=== PATIENT | male | born 1980 | race Caucasian/White ===

== ENCOUNTER → 2019-02-22 | Outpatient (CLI) | payer MEDICARE, BC, MEDICAID | LOC: FB.MH 08:00 | PROVIDERS: ATTEND Psychiatry & Neurology Psychiatry | DX: F34.0 Cyclothymic disorder (principal); F41.1 Generalized anxiety disorder; F71 Moderate intellectual disabilities | CPT/HCPCS: 99213 ==

== ENCOUNTER 2020-06-02 10:56 | Emergency (ER) | payer MEDICARE, BC, MEDICAID ==
[2020-06-02] MEDS ORDERED: Sodium Chloride 0.9% 10 ML Syringe FLUSH PRN (11:15)
[2020-06-02] MEDS ORDERED: Sodium Chloride 0.9% 500 ML IV ONE (11:15)
--- NOTE | 2020-06-02 11:15 | EDM.PDOC ---
ED HPI GENERAL MEDICAL PROBLEM - General Chief Complaint: Neuro Symptoms/Deficits Stated Complaint: CARDIAC Time Seen by Provider: 06/02/20 11:10 Source of Information: Reports: Patient, EMS, Other (caregiver) - History of Present Illness INITIAL COMMENTS - FREE TEXT/NARRATIVE: Patient was standing in faith, stated to his caregiver that he had a headache, then sat down, became unresponsive, displayed jerking movements, and agonal breathing. There was no injury. Episode lasted 30 sec. He has had three similar episodes in the last ninety days and is currently wearing a cardiac event monitor because of this. He resides at a snf. No formal diagnosis of seizure disorder. Patient complains of headache, dizziness, and cough. Duration: Hour(s): (1) - Related Data Allergies Allergy/AdvReac Type Severity Reaction Status Date / Time No Known Allergies Allergy Verified 06/02/20 11:02 Home Meds: Home Meds Acetaminophen 325 mg PO BEDTIME 07/07/15 [History] Albuterol Sulfate [Proair Hfa] 2 inh INH Q4HR PRN 07/07/15 [History] Azithromycin [Z-Janak] 250 mg PO ASDIRECTED #1 dosepk 07/07/15 [Rx] Benztropine [Cogentin] 0.5 mg PO DAILY 07/07/15 [History] Cellulose [Unifiber] 1 tbsp PO BEDTIME 07/07/15 [History] Fluoride (Sodium) [Clinpro 5000] 1 applic DENT DAILY 07/07/15 [History] Fluticasone Propionate [Flonase] 1 inh INH BID 07/07/15 [History] Fluticasone/Salmeterol [Advair Diskus 100-50] 1 inh PO BID 07/07/15 [History] Ibuprofen 600 mg PO Q6HR 07/07/15 [History] Loratadine [Claritin] 10 mg PO DAILY 07/07/15 [History] Mv,Sundeep,Min/Iron/Folic Acid/Lut [Complete Multi] 1 tab PO DAILY 07/07/15 [History] OXcarbazepine [Trileptal] 600 mg PO BID 07/07/15 [History] QUEtiapine Fumarate [Seroquel Xr] 200 mg PO BEDTIME 07/07/15 [History] QUEtiapine [SEROquel XR] 150 mg PO DAILY 07/07/15 [History] QUEtiapine [SEROquel] 50 mg PO BID PRN 07/07/15 [History] QUEtiapine [SEROquel] 100 mg PO BEDTIME 07/07/15 [History] diphenhydrAMINE [Benadryl] 25 mg PO Q6HR PRN 07/07/15 [History] Past Medical History Respiratory History: Reports: Asthma Psychiatric History: Reports: Anxiety, Bipolar, Mood Swings, Other (See Below) Other Psychiatric History: MENTALLY HANDICAPPED ED ROS GENERAL - Review of Systems Review Of Systems: Unable To Obtain Reason Not Obtained: Intellectual disability - Physical Exam Exam: See Below Exam Limited By: No Limitations General Appearance: Alert, WD/WN, No Apparent Distress Eye Exam: Bilateral Eye: EOMI, PERRL Throat/Mouth: No Airway Compromise Head Exam: Atraumatic, Normocephalic Respiratory/Chest: Lungs Clear, Normal Breath Sounds Cardiovascular: Regular Rate, Rhythm, No Gallop, No Murmur GI/Abdominal: Soft, Non-Tender, No Distention Neuro Exam (Abbreviated): Alert, Other (non-focal) Extremities: Normal Range of Motion Skin Exam: Warm, Dry, Intact #1 Interpretation EKG Date: 06/02/20 Time: 10:58 Rhythm: NSR Rate (Beats/Min): 76 [place]: Normal P-Wave: Present QRS: Other (nonspecific intraventricular conduction delay) ST-T: Normal QT: Normal Comparison: No Change (07/07/15) Course - Vital Signs Last Recorded V/S: Last Vital Signs Temp 36.8 C 06/02/20 11:00 Pulse 84 06/02/20 11:00 Resp 16 06/02/20 11:00 BP 125/81 06/02/20 11:00 Pulse Ox 98 06/02/20 11:00 - Orders/Labs/Meds Orders: Active Orders 24 hr Category Date Time Status EKG Documentation Completion [RC] ASDIRECTED Care 06/02/20 11:00 Active CXR [Chest 1V Frontal] [CR] Stat Exams 06/02/20 11:07 Taken Head wo Cont [CT] Stat Exams 06/02/20 11:05 Stop Req Head wo Cont [CT] Stat Exams 06/02/20 11:05 Taken Sodium Chloride 0.9% [Saline Flush] Med 06/02/20 11:15 Active 10 ml FLUSH ASDIRECTED PRN Saline Lock Insert [OM.PC] Routine Oth 06/02/20 11:15 Ordered EKG 12 Lead [EK] Stat Ther 06/02/20 11:00 Ordered Medication Orders Sodium Chloride (Saline Flush) 10 ml FLUSH ASDIRECTED PRN PRN Reason: Keep Vein Open Labs: Laboratory Tests 06/02/20 06/02/20 Range/Units 11:35 11:35 WBC 4.8 (3.2-10.1) x10-3/uL RBC 4.67 (3.90-5.90) x10(6)uL Hgb 14.5 (12.9-17.7) g/dL Hct 41.9 (38.3-50.1) % MCV 89.6 (80.8-98.7) fL MCH 31.0 (27.0-33.3) pg MCHC 34.6 (28.7-35.3) g/dL RDW 13.9 (12.4-15.0) % Plt Count 147 (117-477) x10(3)uL MPV 6.8 (6.7-11.0) fL Neut % (Auto) 86.3 H (40.3-71.8) % Lymph % (Auto) 6.0 L (15.8-45.3) % [place] % (Auto) 5.5 (5.5-15.2) % Eos % (Auto) 1.0 (0.1-6.8) % Baso % (Auto) 1.2 (0.3-3.8) % Neut # (Auto) 4.2 (1.7-6.9) x10-3/uL Lymph # (Auto) 0.3 L (0.5-4.5) x10-3/uL [place] # (Auto) 0.3 (0.0-1.2) x10-3/uL Eos # (Auto) 0.0 (0.0-0.6) x10-3/uL Baso # (Auto) 0.1 (0.0-0.3) x10-3/uL Sodium 134 L (135-145) mmol/L Potassium 4.4 (3.5-5.3) mmol/L Chloride 99 L (100-110) mmol/L Carbon Dioxide 29 (21-32) mmol/L BUN 15 (7-18) mg/dL Creatinine 0.8 (0.70-1.30) mg/dL Est Cr Clr Drug Dosing TNP Estimated GFR (MDRD) > 60 (>60) BUN/Creatinine Ratio 18.8 (9-20) Glucose 127 H (80-116) mg/dL Calcium 8.3 L (8.6-10.2) mg/dL Total Bilirubin 0.3 (0.1-1.3) mg/dL AST 22 (5-25) IU/L ALT 38 H (12-36) U/L Alkaline Phosphatase 92 (56-112) IU/L Total Protein 6.8 (6.0-8.0) g/dL Albumin 3.9 (3.5-5.2) g/dL Globulin 2.9 g/dL Albumin/Globulin Ratio 1.3 Meds: Medications Generic Name Dose Route Start Last Admin Trade Name Freq PRN Reason Stop Dose Admin Sodium Chloride 10 ml 06/02/20 11:15 Saline Flush FLUSH ASDIRECTED PRN Keep Vein Open Discontinued Medications Generic Name Dose Route Start Last Admin Trade Name Freq PRN Reason Stop Dose Admin Sodium Chloride 500 mls @ 500 mls/hr 06/02/20 11:15 06/02/20 11:17 Normal Saline IV 06/02/20 12:14 500 mls/hr .BOLUS ONE Administration - Radiology Interpretation Free Text/Narrative:: CXR: No acute process. (ED provider interpretation) CT Head s/ contrast: Impression: 1. No evidence of acute intracranial abnormality. 2. Stable regions of nonspecific hypoattenuation in the bilateral frontal and parietal lobe subcortical white matter are nonspecific but could represent chronic microangiopathic white matter changes. 3. Resolution of right maxillary sinus disease. Dictated by Oscar Alfaro MD @ Jun 02 2020 12:10PM - Re-Assessments/Exams Free Text/Narrative Re-Assessment/Exam: 06/02/20 12:24 NSR s/ ectopy and no seizure like activity during ED stay. Departure - Departure Time of Disposition: 12:25 Disposition: Home, Self-Care 01 Condition: Good Clinical Impression: Seizure-like activity Syncope Qualifiers: Syncope type: unspecified Qualified Code(s): R55 - Syncope and collapse - Discharge Information *PRESCRIPTION DRUG MONITORING PROGRAM REVIEWED*: No *COPY OF PRESCRIPTION DRUG MONITORING REPORT IN PATIENT BOYD: Not Applicable Instructions: Syncope, [id number] Referrals: George Solorio MD [Primary Care Provider] - 2 Days Forms: ED Department Discharge Additional Instructions: Follow up with your primary physician in 2-3 days. Return to the ER with any con cerns. Sepsis Event Note (ED) - Evaluation Sepsis Screening Result: No Definite Risk - Focused Exam Vital Signs: Vital Signs Temp Pulse Resp BP Pulse Ox 06/02/20 11:00 36.8 C 84 16 125/81 98 - My Orders Last 24 Hours: My Active Orders 06/02/20 11:00 EKG Documentation Completion [RC] ASDIRECTED EKG 12 Lead [EK] Stat 06/02/20 11:05 Head wo Cont [CT] Stat Head wo Cont [CT] Stat 06/02/20 11:07 CXR [Chest 1V Frontal] [CR] Stat 06/02/20 11:15 Sodium Chloride 0.9% [Saline Flush] 10 ml FLUSH ASDIRECTED PRN Saline Lock Insert [OM.PC] Routine - Assessment/Plan Last 24 Hours: My Active Orders 06/02/20 11:00 EKG Documentation Completion [RC] ASDIRECTED EKG 12 Lead [EK] Stat 06/02/20 11:05 Head wo Cont [CT] Stat Head wo Cont [CT] Stat 06/02/20 11:07 CXR [Chest 1V Frontal] [CR] Stat 06/02/20 11:15 Sodium Chloride 0.9% [Saline Flush] 10 ml FLUSH ASDIRECTED PRN Saline Lock Insert [OM.PC] Routine
[2020-06-02 11:31] VITALS: BP 125/81; PULSE 84
--- NOTE | 2020-06-03 11:04 | CR ---
INDICATION: Cough. CHEST ONE VIEW: An AP upright portable view of the chest was obtained 06/02/20 and compared with 02/01/13. What appears to be a relatively poor inspiration is noted. Electronic device is noted overlying the left upper chest. Overlying EKG leads are noted. Heart did not appear grossly enlarged. Heavy markings are noted at the lung bases, not dissimilar from the previous study, but making it difficult to exclude areas of patchy bronchopneumonia. It may simply be on the basis of fibrosis, however, and should be correlated clinically. No gross consolidating pneumonia or effusion was seen. When clinically possibly, full inspiration PA and lateral views of the chest may be helpful for further evaluation. MTDD
== END 2020-06-02 13:15 | disposition home or self-care (01) ==
LOC: FB.ED 10:56
DX: R55 Syncope and collapse (principal); R25.9 Unspecified abnormal involuntary movements; R51.9 Headache, unspecified; R42 Dizziness and giddiness; R05 Cough; J45.909 Unspecified asthma, uncomplicated; Z79.899 Other long term (current) drug therapy
CPT/HCPCS: 36415; 70450; 71045; 80053; 85025; 93005; 99285-25; J7040

== ENCOUNTER 2024-08-09 07:46 | Day surgery (SDC) | payer MEDICARE, BC, MEDICAID ==
[~2024-08-09 07:46] MED LIST: Sodium Chloride 0.9% 10 ML Syringe FLUSH PRN
[2024-08-09] MEDS ORDERED: Midazolam 1 MG/ML 2 ML SDV IV ONE (07:47)
[2024-08-09] MEDS ORDERED: Propofol 200 MG/20 ML SDV IV ONE (07:47)
[2024-08-09] MEDS ORDERED: Lidocaine 2% 100 MG/5 ML Syringe IVPUSH ONE (07:47)
[2024-08-09] MEDS: Lactated Ringers 1,000 ML IV SCH (08:22)
[2024-08-09] MEDS: Simethicone Drops 40 MG/0.6 ML 30 ML Bottle ONE (09:14)
[2024-08-09 13:07] VITALS: BP 122/82; PULSE 93
== END 2024-08-09 11:50 | disposition home or self-care (01) ==
LOC: FB.SDS 07:46
PROVIDERS: ATTEND Surgery
DX: Z12.11 Encounter for screening for malignant neoplasm of colon (principal); K57.30 Diverticulosis of large intestine without perforation or abscess without bleeding; Z88.8 Allergy status to other drugs, medicaments and biological substances; Z91.012 Allergy to eggs; Z79.899 Other long term (current) drug therapy
CPT/HCPCS: A9270-GY; J2250; J2704; J7120